=== PATIENT | male | born 1960 ===

== ENCOUNTER 2017-10-13 11:41 | Outpatient (CLI) | payer OTHER ==
[~2017-10-13] VITALS: Ht 182.9 cm; Wt 122.5 kg
== END 2017-10-13 12:00 | disposition home or self-care (01) ==
LOC: OFIC 805 11:41
DX: H93.13 Tinnitus, bilateral (principal); M54.2 Cervicalgia

== ENCOUNTER 2017-11-17 07:19 | Outpatient (CLI) | payer OTHER ==
[~2017-11-17] VITALS: Ht 182.9 cm; Wt 122.5 kg
== END 2017-11-17 07:40 | disposition home or self-care (01) ==
LOC: OFIC 805 07:19
DX: H93.13 Tinnitus, bilateral (principal); J30.89 Other allergic rhinitis; H90.42 Sensorineural hearing loss, unilateral, left ear, with unrestricted hearing on the contralateral side